=== PATIENT | female | born 1965 | race African-American/Black ===

== ENCOUNTER 2017-08-29 12:45 | Emergency (ER) | payer BC ==
[~2017-08-29] VITALS: Ht 152.4 cm; Wt 58.0 kg
[2017-08-29 12:47] VITALS: BP 150/91; PULSE 90; RESP 20; TEMP 97.6; O2SAT 98
[2017-08-29] MEDS ORDERED: FLUT1SPR5 EACH NARE (12:58)
[2017-08-29] MEDS ORDERED: AMOX875T PO (12:58)
--- NOTE | 2017-08-29 12:58 | PD ---
HPI Chief Complaint: Cold / Flu Symptoms Time Seen by Provider: 12:51 Travel History International Travel<30 days: No Contact w/Intl Traveler<30days: No Traveled to known affect area: No History of Present Illness HPI 52-year-old Afro-[place] female presents to emergency department with one week history of upper respiratory congestion, sinus headache, sore throat, postnasal drip, hoarseness, and cough. Patient states it feels like it somewhat settled in her chest. Patient has sinus congestion and headache. Patient denies heartburn. Patient denies significant fever or chills. No nausea or vomiting. No significant shortness of breath. No history of wheezing or need for inhaler in the past. Patient is visiting from [place]. No known drug allergies. PFSH Past Medical History ?: Not Social History Alcohol Use: Yes Tobacco Use: No Substance Use: No Allergies-Medications (Allergen,Severity, Reaction): Coded Allergies: No Known Allergies (Unverified , 08/29/17) Reported Meds & Prescriptions Reported Meds & Active Scripts Active Flonase Nasal [place] (Fluticasone Nasal [place]) 50 Mcg/Act [place] 100 Mcg EACH NARE BID Amoxicillin 875 Mg Tab 875 Mg PO BID 10 Days Review of Systems Except as stated in HPI: all other systems reviewed are Neg General / Constitutional: Positive: Chills, No: Fever Eyes: No: Visual changes HENT: Positive: Headaches, Sore Throat, Rhinitis, Rhinorrhea, Congestion, No: Vertigo, Lightheadedness, Nosebleed, Neck Stiffness, Neck Pain, Gingival Bleeding, Dental Difficulties, Ear Discharge, Earache Cardiovascular: No: Chest Pain or Discomfort Respiratory: Positive: Cough, No: Shortness of Breath, Wheezing, Sneezing Gastrointestinal: No: Nausea, Vomiting, Diarrhea, Abdominal Pain, Dysphagia, Loss of Appetite Genitourinary: No: Dysuria Musculoskeletal: No: Pain Skin: No Rash Neurologic: No: Weakness Psychiatric: No: Depression Endocrine: No: Polydipsia Hematologic/Lymphatic: No: Easy Bruising Physical Exam Narrative GENERAL: Patient appears in no acute distress. She is hoarse. SKIN: Warm and dry. Normal color. Normal turgor. No rash. HEAD: Atraumatic. Normocephalic. Mild sinus tenderness to both frontal and maxillary sinuses. EYES: Pupils equal and round. No scleral icterus. No injection or drainage. ENT: No nasal bleeding or discharge. Mucous membranes pink and moist. Posterior pharynx appears somewhat injected with cobblestoning with no significant swelling. Airway is patent. No significant lymphadenopathy. No exudate. TMs are clear bilaterally. NECK: Trachea midline. Supple nontender without lymphadenopathy. CARDIOVASCULAR: Regular rate and rhythm. RESPIRATORY: No accessory muscle use. Clear to auscultation. Breath sounds equal bilaterally. GASTROINTESTINAL: Abdomen soft, non-tender, nondistended. Hepatic and splenic margins not palpable. MUSCULOSKELETAL: Extremities without clubbing, cyanosis, or edema. No obvious deformities. NEUROLOGICAL: Awake and alert. No obvious cranial nerve deficits. Motor grossly within normal limits. Five out of 5 muscle strength in the arms and legs. Normal speech. PSYCHIATRIC: Appropriate mood and affect; insight and judgment normal. Data Data Last Documented VS Vital Signs Date Time Temp Pulse Resp B/P (MAP) Pulse Ox O2 Delivery O2 Flow Rate FiO2 08/29/17 12:47 97.6 90 20 150/91 (110) 98 Room Air Orders Orders Ed Discharge Order (08/29/17 12:59) [facility] Medical Decision Making Medical Screen Exam Complete: Yes Emergency Medical Condition: Yes Differential Diagnosis Upper respiratory infection. Sinusitis. Postnasal drip. Bronchitis. Narrative Course Patient is treated with amoxicillin 875 twice a day. For 10 days. Patient is given Flonase nasal spray 2 sprays nostril daily. Patient to continue [id number] cough medicines as needed. Patient follow up if symptoms do not improve over the next week. Diagnosis Primary Impression: Acute pansinusitis, unspecified Qualified Codes: J01.40 - Acute pansinusitis, unspecified Patient Instructions: General Instructions, Sinusitis (ED) Additional Instructions: Patient is treated with amoxicillin 875 twice a day. For 10 days. Patient is given Flonase nasal spray 2 sprays nostril daily. Patient to continue [id number]-[id number] cough medicines as needed. Patient follow up if symptoms do not improve over the next week. Med/Other Pt SpecificInfo: Prescription(s) given Scripts Fluticasone Nasal [place] (Flonase Nasal [place]) 50 Mcg/Act [place] 100 MCG EACH NARE BID for Allergies, #1 BOTTLE 0 Refills Prov: Leo Kyle MD 08/29/17 Amoxicillin (Amoxicillin) 875 Mg Tab 875 MG PO BID for Infection for 10 Days, #20 TAB 0 Refills Prov: Leo Kyle MD 08/29/17 Disposition: 01 DISCHARGE HOME Condition: Stable [place] Jo Aug 29, 2017 12:57
== END 2017-08-29 13:21 | disposition home or self-care (01) ==
LOC: NEPK 12:45
DX: J01.40 Acute pansinusitis, unspecified (principal)
CPT/HCPCS: 99284